=== PATIENT | male | born 1950 | race African-American/Black ===

== ENCOUNTER 2021-12-07 14:36 | Outpatient (CLI) | payer MEDICARE | END 2021-12-07 14:37 | disposition home or self-care (01) | LOC: CSHLAB 14:36 | PROVIDERS: ATTEND Internal Medicine Critical Care Medicine | DX: Z20.822 Contact with and (suspected) exposure to COVID-19 (principal) | CPT/HCPCS: 87811 ==

== ENCOUNTER 2021-12-11 15:42 | Outpatient (CLI) | payer MEDICARE | END 2021-12-11 15:43 | disposition home or self-care (01) | LOC: CSHCP 15:42 | PROVIDERS: ATTEND Internal Medicine Critical Care Medicine | DX: R91.1 Solitary pulmonary nodule (principal); J98.4 Other disorders of lung; R06.00 Dyspnea, unspecified; F17.210 Nicotine dependence, cigarettes, uncomplicated | CPT/HCPCS: 94060; 94726; 94729; 94760 ==

== ENCOUNTER 2025-01-19 09:08 | Outpatient (CLI) | payer OTHER | END 2025-01-19 09:09 | disposition home or self-care (01) | LOC: CSHCP 09:08 | PROVIDERS: ATTEND Internal Medicine Critical Care Medicine | DX: R91.1 Solitary pulmonary nodule (principal); J44.9 Chronic obstructive pulmonary disease, unspecified | CPT/HCPCS: 94060; 94664; 94726; 94729; 94760 ==